=== PATIENT | male | born 1950 | race Caucasian/White ===

== ENCOUNTER 2016-08-02 11:39 | Emergency (ER) | payer MEDICARE ==
--- NOTE | ~2016-08-02 | EKG ---
PATIENT: VIJAY VILLAFUERTE UNIT #: [id number] Ventricular Rate: 80 BPM Atrial Rate: 375 BPM QRS Duration: 158 ms Q-T Interval: 418 ms QTC Calculation(Bezet): 482 ms Calculated R [place]: 32 degrees Calculated T [place]: 23 degrees Diagnosis Line: Atrial fibrillation Diagnosis Line: Right bundle branch block Diagnosis Line: Abnormal ECG Diagnosis Line: When compared with ECG of 02-AUG-2016 10:55, Diagnosis Line: (unconfirmed) Diagnosis Line: No significant change was found Diagnosis Line: Confirmed by DIEUDONNE RUSSELL MD ([id number]) on Diagnosis Line: 08/03/2016 8:00:44 PM INTERPRETING MD: GRACIELA
--- NOTE | ~2016-08-02 | EKG ---
PATIENT: VIJAY VILLAFUERTE UNIT #: [id number] Ventricular Rate: 59 BPM Atrial Rate: 267 BPM QRS Duration: 156 ms Q-T Interval: 426 ms QTC Calculation(Bezet): 421 ms Calculated R [place]: 26 degrees Calculated T Kirk: 13 degrees Diagnosis Line: Atrial fibrillation with slow ventricular response Diagnosis Line: with occasional ventricular-paced complexes Diagnosis Line: Right bundle branch block Diagnosis Line: Abnormal ECG Diagnosis Line: When compared with ECG of 30-MAY-2015 04:41, Diagnosis Line: Paced beats seen Diagnosis Line: Confirmed by DIEUDONNE RUSSELL MD ([id number]) on Diagnosis Line: 08/03/2016 7:59:57 PM INTERPRETING MD: GRACIELA
--- NOTE | ~2016-08-02 | CR72 ---
[facility] A Service of [facility] RADIOLOGY TEXT RESULTS PATIENT: VIJAY VILLAFUERTE LOCATION: [facility] : 54 UNIT #: [id number] AGE: [address]: Frank Soni MD SEX: M ORDER DR: [id number] [facility] [address] [place], [place] [address] [id number] MR#: [id number] Acc #: [id number] NAME: VIJAY VILLAFUERTE : 1950 SEX: M STUDY DATE/TIME: 08/02/2016 11:36 UNIT: [facility] ROOM: STUDY DESCRIPTION: CR Chest Single View Portable Attending Physician: Frank Soni M.D. Referring Physician: Bart Escalona M.D. Ordering Physician: Jhonny Mena M.D. Primary Care Physician: Bart Escalona M.D. MEDICAL IMAGING REPORT This report is preliminary unless electronic signature is present EXAM Portable chest 08/02/2016 HISTORY 65-year-old male with chest pain and dizziness beginning today. COMPARISON Chest 05/30/2015. FINDINGS 2 frontal views of the chest demonstrate stable cardiomegaly. Left-sided AICD complex. Mediastinum and pulmonary vasculature unremarkable. Lungs are clear. No pneumothorax. IMPRESSION Stable cardiomegaly. No other acute chest findings. Dictated by... Toan Polanco M.D. THIS IS AN ELECTRONICALLY VERIFIED REPORT Toan Polanco M.D. at 08/04/2016 7:44 AM TYSON/gauri TD: 08/03/2016 10:21 JOB #: [id number] MEDICAL IMAGING REPORT COPY
--- NOTE | ~2016-08-02 | HP ---
Unit #: [id number] #: [id number] Patient: VIJAY VILLAFUERTE [id number] [address] [place], [place] [address] [id number] MR#: [id number] NAME: VIJAY VILLAFUERTE ROOM: Age: 65 Sex: M Admission Date: 08/02/2016 : 1950 Attending Physician: Frank Soni M.D. Referring Physician: Bart Escalona M.D. Primary Care Physician: Bart Escalona M.D. HISTORY AND PHYSICAL HISTORY OF PRESENT ILLNESS Mr. Villafuerte is a 65-year-old white male well-known to Dr. Hammond's practice with past medical history of permanent atrial fibrillation controlled on Coumadin for anticoagulation, LV systolic dysfunction and nonischemic cardiomyopathy with reduced EF, status post AICD with a Medtronic device in 2011, COPD, asthma, obesity, hypertension, nonsustained ventricular tachycardia, status post a ventricular tachycardia ablation in August 2014. He presents on 08/02/2016 to the ER with an acute episode of dizziness at rest with associated weakness to bilateral lower extremities that occurred this morning. He called EMS for these above complaints. They gave him 3 baby aspirin and it made him throw up. While being evaluated by EMS, they thought his heart rate was in the 20s so they brought him to the emergency room for evaluation. To note, the patient does have no other complaints. He denies any chest pain. He does not have any palpitations. He did have dizziness. However, before getting the aspirin he was not nauseated. He has orthopnea due to his asthma but it is intermittent and he denies any PND. Upon chart review, it looks like he has been examined in the past for similar complaints. He denies any lower extremity swelling any more than normal. He denies any weight gain any more than normal. He denies any recent sickness or fever. While in the emergency room, his Medtronic ICD was interrogated. He was shown to have no events. Mode of DDI with a low rate set to 40. Chest x-ray on 08/02/2016 showed stable cardiomegaly, no other acute findings. EKG on 08/02/2016, on arrival to the ER, showed atrial fibrillation with a ventricular rate of 59 with occasional ventricularly-paced complexes and a right bundle branch block which, to note, is not new for him. Recent cardiac testing includes a left heart cath in 2011 which showed normal coronaries and an EF of 25% to 30%. 2D echocardiogram in August of 2014, EF had improved to 40% to 45% with [id number] global hypokinesis, mild tricuspid regurgitation. He had a Lexiscan stress test done in August 2014 which showed no acute ischemia but he did have a 15- to 20-beat run of ventricular tachycardia while on the treadmill to his EKG. He was subsequently transferred to [facility] and received a ventricular tachycardia ablation on 09/01/2014. PAST SURGICAL HISTORY Includes: 1. AICD implantation in 2011. 2. Bilateral cataract extraction. 3. Ventricular tachycardia ablation 09/01/2014. HOME MEDICATIONS Unit #: [id number] #: [id number] Patient: VIJAY VILLAFUERTE Include: 1. Coumadin 5 mg daily on Thursday, , Thursday. 2. Coumadin 7.5 mg on Saturdays. 3. Coreg 50 mg b.i.d. 4. Lasix 20 mg b.i.d. 5. Losartan 25 mg h.s. 6. Aspirin 81 daily. 7. Potassium 20 mEq daily. 8. Tylenol 500 mg q.4 h. as needed for pain. 9. Symbicort two puff inhaler b.i.d. 10. Combivent 3 mL inhaler p.r.n. q.4 h. as needed for shortness of air. 11. Latanoprost one drop to each eye h.s. ALLERGIES No known drug allergies. SOCIAL HISTORY Patient lives at home. He is very sedentary with his lifestyle. No illicit drugs. No alcohol. He is a lifelong nonsmoker. FAMILY HISTORY Parents from some type of cancer. Cancer in two of his siblings as well. No premature coronary heart disease. REVIEW OF SYSTEMS A 12-point review of systems was negative except for as noted above in the HPI. PHYSICAL EXAMINATION VITAL SIGNS: Temperature 97.6, heart rate 70 but this has fluctuated from a rate of [address] up to in the 70s. Respirations are 15. Blood pressure was 106/66. Please note, I had nursing check orthostatics and his blood pressure lying down was 103/46 and his heart rate was 75. His sitting blood pressure was 105/67 and sitting heart rate 74. His standing blood pressure was 118/74 and heart rate of 91. His weight is 137.4 kg, his BMI is 50. GENERAL: The patient is an obese, white male in no acute distress. NEUROLOGIC: He is awake, alert and oriented and is appropriate and follows commands. NECK: Obese but no JVD noted. LUNGS: Bilaterally wheezing with diminished bases and he has increased respiratory effort noted. HEART: Irregularly irregular rhythm with S1, S2 noted. No murmurs, gallops or rubs are appreciated due to distant heart sounds. ABDOMEN: Obese but nontender. Positive bowel sounds. EXTREMITIES: No edema. Chronic venous stasis hyperpigmentation to bilateral lower extremities. DIAGNOSTIC STUDIES LABORATORY: Includes sodium 138, potassium 3.9, chloride 106, CO2 of 25, BUN 19, creatinine 0.9, glucose 167. BNP 132. INR 2. Troponin was negative in the ER. Hemoglobin 13.9, hematocrit 42.2, WBC 10.5, platelet count 196. IMAGING: Chest x-ray on 08/02/2016 showed stable cardiomegaly; no other acute findings. CARDIOVASCULAR: AICD was interrogated by the [employer] rep which showed Unit #: [id number] #: [id number] Patient: VIJAY VILLAFUERTE no acute events. 12-lead EKG which was unchanged from previous EKGs showing atrial fibrillation, rate of 80 beats per minute with a right bundle branch block and an old inferior infarct, age undetermined. IMPRESSION 1. Permanent atrial fibrillation with controlled rates managed on Coumadin. 2. History of chronic asthma. 3. Symptomatic dizziness at rest with AICD interrogated and working efficiently. 4. History of a ventricular tachycardia ablation. 5. Recent normal stress and cardiac catheterization showing on ischemia. 6. Obesity, BMI 50. 7. Quite possibly sleep apnea. PLAN He was seen and examined by Cardiology. We interrogated his pacemaker which appeared to be working appropriately. His vital signs are stable. He is not orthostatic. All of his labs appear appropriate. He is in no acute distress at the moment. On exam, no overt fluid overload was found. His EKG was unchanged from previous EKG and his chest x-ray remained stable. He was appropriate to be discharged. He needs to continue on all of his medications including his Coumadin. He does have a therapeutic INR. He needs to follow with Dr. Hammond in 4-6 weeks. Dictated by Kathrine Heath APRN for Stu Brooks TD: 08/02/2016 16:26 JOB #: [id number] HISTORY AND PHYSICAL X X HISTORY AND PHYSICAL
[~2016-08-02 11:39] MED LIST: ACETAMINOPHEN PO; ALB/IPRATROPIUM/1 E1 INH; ALBUTEROL MININEB NEB; ALBUTEROL0.83 MG/ML; ALBUTEROL17 GM INH; ASPIRIN PO; ASPIRIN81 M1; ASPIRIN81 M1 PO; ASPIRIN81 M2 PO; ASPIRIN81 MG PO; AUGMENTIN PO; CARVEDILOL25 MG PO; CARVEDILOL6.25 MG PO; COMBIVENT MININEB INH; CORDARONE200 M1 PO; COREG PO; COREG3.125 MG PO; COREG6.25 MG PO; COUMADIN PO; COUMADIN5 MG PO; COZAAR PO; DIGITEK125 MCG PO; DIGOXIN125 MCG PO; ECOTRIN81 M1 PO; FUROSEMIDE40 MG PO; IBUPROFEN PO; K-DUR20 ME1 PO; KCL PO; KLOR-CON PO; LANOXIN PE DOB; LANOXIN PO; LASIX PO; LASIX20 MG PO; LISINOPRIL PO; LISINOPRIL10 MG PO; LISINOPRIL20 MG PO; LOSARTAN POTASS50 MG PO; MEDROL4 MG/DOSE- PO; NOT SURE OF MEDS; PACERONE PO; PREDNISONE PO; PREDNISONE10 MG/DOSE PO; PRIMATENE MIST; PRINIVIL10 MG PO; PROAIR HFA8.5 GM IH; PROVENTIL0.83 MG/ML; PROVENTIL0.83 MG/ML IH; SYMBICORT INH; SYMBICORT80 INH; TYLENOL500 MG DOB; VICODIN 5/500 T1 TAB PO; XALATAN OP; XOPENEX1.25 MG/3 IH; ZITHROMAX PO
[2016-08-02 11:52] LABS: BASOPHIL% 0.5 % (0-2.5); EOSINOPHIL# 0.1 X10e3 (0-0.7); EOSINOPHIL% 1.2 % (0.0-7.0); HEMATOCRIT 42.2 % (38.0-50.0); HEMOGLOBIN 13.9 gm/dL (13.0-16.0); LYMPHOCYTE# 1.5 X10e3 (1.0-3.5); LYMPHOCYTE% 14.2 % (17.0-45.0); MEAN CELL VOLUME 91.7 FL (83-96); MEAN CORPUSCULAR HEMOGLOBIN 30.2 PG (28-34); MEAN PLATELET VOLUME 9.7 FL (6.5-11.5); MONOCYTE# 1.1 X10e3 (0-1.0); MONOCYTE% 10.1 % (3.0-12.0); NEUTROPHIL# 7.8 X10e3 (1.5-7.1); PLATELET COUNT 196 X10e3 (140-420); RED CELL DISTRIBUTION WIDTH 14.4 % (11.0-15.5); WHITE BLOOD COUNT 10.5 X10e3 (4.0-10.5)
[2016-08-02 11:55] LABS: DIFF IND NO
[2016-08-02 11:56] LABS: POC - CKMB <1.0 ng/mL (0.0-7.9); POC - TROPONIN <0.05 ng/mL (<=0.05)
[2016-08-02 12:11] LABS: PARTIAL THROMBOPLASTIN TIME 33.2 SECONDS (23.5-31.3); PROTHROMBIN TIME (PATIENT) 21.2 SECONDS (9.6-11.5)
[2016-08-02 12:24] LABS: ALBUMIN SERUM 3.7 g/dL (3.5-5.0); ALKALINE PHOSPHATASE 48 U/L (32-92); ALT (SGPT) 19 U/L (10-40); AST (SGOT) 19 U/L (10-42); BILIRUBIN, DIRECT 0.2 mg/dL (0.0-0.2); BILIRUBIN,INDIRECT 0.7 mg/dL (0.0-0.9); BILIRUBIN,TOTAL 0.9 mg/dL (0.2-2.0); BLOOD UREA NITROGEN 19 mg/dL (9-23); BUN/CREATININE RATIO 21.11; CALCIUM SERUM 8.5 mg/dL (8.4-10.2); CARBON DIOXIDE 25 mmol/L (22-31); CHLORIDE 106 mmol/L (100-111); CREATININE SERUM 0.9 mg/dL (0.6-1.4); GLOM FILT RATE Estimated ABOVE60 mL/min (>60); GLUCOSE FASTING 167 mg/dL (70-110); POTASSIUM 3.9 mmol/L (3.5-5.1); PROTEIN TOTAL SERUM 7.4 g/dL (6.0-8.3); SODIUM 138 mmol/L (135-145)
[2016-08-02] MEDS ORDERED: COUMADIN PO (12:41)
[2016-08-02] MEDS ORDERED: LASIX20 MG PO (12:43)
[2016-08-02] MEDS ORDERED: CARVEDILOL25 MG PO (12:43)
[2016-08-02] MEDS ORDERED: ASPIRIN81 MG PO (12:44)
[2016-08-02] MEDS ORDERED: LOSARTAN POTASS25 MG PO (12:44)
[2016-08-02] MEDS ORDERED: SYMBICORT INH (12:45)
[2016-08-02] MEDS ORDERED: K-DUR20 ME1 PO (12:45)
[2016-08-02] MEDS ORDERED: ACETAMINOPHEN500 M3 PO (12:45)
[2016-08-02] MEDS ORDERED: XALATAN OS (12:46)
[2016-08-02] MEDS ORDERED: COMBIVENT U/D3 M2 INH (12:46)
[2016-08-02 13:27] LABS: POC - CKMB <1.0 ng/mL (0.0-7.9); POC - TROPONIN <0.05 ng/mL (<=0.05)
== END 2016-08-02 16:32 | disposition home or self-care (01) ==
LOC: CED 11:39
PROVIDERS: Emergency Medicine
DX: R07.9 Chest pain, unspecified (principal); R42 Dizziness and giddiness; R11.2 Nausea with vomiting, unspecified; I48.91 Unspecified atrial fibrillation; I50.9 Heart failure, unspecified; G47.33 Obstructive sleep apnea (adult) (pediatric)
CPT/HCPCS: 36415; 71010; 80048; 80076; 82553; 83880; 84484; 85025; 85610; 85730; 93005; 96374; 99285; J2405

== ENCOUNTER 2016-12-03 19:00 | Emergency (ER) | payer MEDICARE ==
[~2016-12-03] VITALS: Ht 165.1 cm; Wt 137.9 kg
--- NOTE | ~2016-12-03 | EKG ---
PATIENT: VIJAY VILLAFUERTE UNIT #: [id number] Ventricular Rate: 89 BPM Atrial Rate: 113 BPM QRS Duration: 150 ms Q-T Interval: 388 ms QTC Calculation(Bezet): 472 ms Calculated R [place]: 67 degrees Calculated T [place]: -18 degrees Diagnosis Line: Atrial fibrillation Diagnosis Line: Right bundle branch block Diagnosis Line: Abnormal ECG Diagnosis Line: No previous ECGs available Diagnosis Line: Confirmed by LEXY JOHNSON MD ([id number]) on Diagnosis Line: 12/05/2016 7:30:12 AM INTERPRETING MD: ELIZABETH EARLY
[~2016-12-03 19:00] MED LIST changes: +ACETAMINOPHEN500 M3 PO; +COMBIVENT U/D3 M2 INH; +LOSARTAN POTASS25 MG PO; +XALATAN OS
[2016-12-03 20:02] LABS: BASOPHIL# 0.1 X10e3 (0-0.3); BASOPHIL% 0.6 % (0-2.5); EOSINOPHIL# 0.1 X10e3 (0-0.7); EOSINOPHIL% 0.9 % (0.0-7.0); HEMOGLOBIN 14.2 gm/dL (13.0-16.0); LYMPHOCYTE# 1.2 X10e3 (1.0-3.5); MEAN CELL VOLUME 91.7 FL (83-96); MEAN CORPUSCULAR HEMOGLOBIN 30.2 PG (28-34); MEAN PLATELET VOLUME 9.7 FL (6.5-11.5); MONOCYTE# 0.8 X10e3 (0-1.0); MONOCYTE% 8.6 % (3.0-12.0); NEUTROPHIL# 7.3 X10e3 (1.5-7.1); NEUTROPHIL% 76.9 % (40-75); PLATELET COUNT 168 X10e3 (140-420); RED BLOOD COUNT 4.69 X10e (3.90-5.60); RED CELL DISTRIBUTION WIDTH 15.2 % (11.0-15.5); WHITE BLOOD COUNT 9.4 X10e3 (4.0-10.5)
[2016-12-03 20:09] LABS: DIFF IND NO; PROTHROMBIN TIME (PATIENT) 32.8 SECONDS (10.0-11.7)
[2016-12-03 20:26] LABS: BILIRUBIN, DIRECT 0.2 mg/dL (0.0-0.2); BILIRUBIN,INDIRECT 0.6 mg/dL (0.0-0.9); BILIRUBIN,TOTAL 0.8 mg/dL (0.2-2.0); BUN/CREATININE RATIO 14.16; CALCIUM SERUM 8.6 mg/dL (8.4-10.2); CREATININE SERUM 1.2 mg/dL (0.6-1.4); GLOM FILT RATE Estimated 63.5 mL/min (>60); POTASSIUM 3.7 mmol/L (3.5-5.1); PROTEIN TOTAL SERUM 7.8 g/dL (6.0-8.3)
[2016-12-03 20:47] LABS: POC - CKMB <1.0 ng/mL (0.0-7.9); POC - TROPONIN <0.05 ng/mL (<=0.05)
== END 2016-12-03 21:21 | disposition home or self-care (01) ==
LOC: CED 19:00
PROVIDERS: Emergency Medicine
DX: E86.0 Dehydration (principal); J44.9 Chronic obstructive pulmonary disease, unspecified; I48.91 Unspecified atrial fibrillation; I50.9 Heart failure, unspecified; Z79.899 Other long term (current) drug therapy; Z79.82 Long term (current) use of aspirin
CPT/HCPCS: 36415; 80048; 80076; 82553; 82947; 84484; 85025; 85610; 93005; 96360; 99285